=== PATIENT | male | born 1960 | race American Indian/Alaskan Native ===

== ENCOUNTER 2018-11-29 20:13 | Emergency (ER) | payer OTHER ==
[2018-11-29 20:22] VITALS: BMI 29.8
--- NOTE | 2018-11-29 20:45 | ED PDOC ---
HPI: Chest Pain Time Seen by Provider: 11/29/18 20:26 Chief Complaint (Nursing): Chest Pain Chief Complaint (Provider): CHEST PAIN History Per: Patient History/Exam Limitations: no limitations Onset/Duration Of Symptoms: Hrs Current Symptoms Are (Timing): Gone Now Severity: None Pain Scale Rating Of: 0 Quality: Sharp Exacerbating Factors: Movement, Deep Breathing, Exertion (NEGATIVE ) Alleviating Factors: Rest Additional History Per: Patient Additional Complaint(s): 57 Y/O MALE WITH MEDCIAL HISTORY OF PRE-DIABETES PRESENTS AND FORMER SMOKER, PRESENTS TO THE ED C/O TRANSIENT SHARP LEFT SIDED CHEST PAIN THAT STARTED WHILE AT WORK WHEN HE BENT DOWN. 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 AFTER THE INITIAL SHARP PAIN, PATIENT STATES PAIN REPRODUCED WITH DEEP INSPIRATION. HE STATES THE PAIN SUBSIDED ON IT OWN. PATIENT DENIES NAUSEA, VOMITING, SWEATS, FEVER, SHORTNESS OF BREATH. PATIENT DENIES PAIN AT THIS TIME AND IS ABLE TO TAKE A DEEP BREATH WITHOUT PAIN. - Risk Factors PE Risk Factors: Neg: Extremity Immobilization/Fx, Decreased Mobilty /Activity, Recent Major Surgery, Recent Hospitalization, Active Cancer, Previous DVT, Previous PE, CHF, Venous Stasis, Recent Major Trauma TAD Risk Factors: Pos: Hypertension Neg: Connective Tissue Disease, Marfan's Syndrome, Lisa-Danlos Syndrome, Aortic Valve Disease, Tumer's Syndrome Past Medical History Reviewed: Historical Data, Nursing Documentation, Vital Signs Vital Signs: Last Vital Signs Temp 98 F 11/29/18 20:25 Pulse 81 11/29/18 20:25 Resp 18 11/29/18 20:25 BP 148/93 H 11/29/18 20:25 Pulse Ox 99 11/29/18 20:25 - Medical History PMH: No Chronic Diseases - Surgical History Surgical History: No Surg Hx - Family History Family History: States: Unknown Family Hx - Social History Alcohol: None Drugs: Denies - Allergies Allergies/Adverse Reactions: Allergies Allergy/AdvReac Type Severity Reaction Status Date / Time No Known Allergies Allergy Verified 11/29/18 20:25 JAIME Risk Score for UA/NSTEMI - JAIME Risk Score Age > 64: NO 3 or more CAD Risk Factors: NO Known CAD (Stenosis greater than 50%): NO Aspirin use in past 7 days: NO Severe Angina: NO EKG ST changes greater than 0.5mm: NO Positive Cardiac Marker: NO JAIME Score: 0 Risk %: 5% Curb-65 Severity Score - CURB-65 Severity Score Confusion: No Bun >19mg/dl (>7mmol/L): No Respiratory Rate greater than/equal to 30: No Systolic BP <90 or Diastolic BP less than/equal 60mmHg: No Age >64: No Curb-65 Score: 0 Percentage 30-day mortality: 0.6% Wells Criteria for PE - Wells Criteria for Pulmonary Embolism Clinical Signs and Symptoms of DVT: No P.E is #1 Diagnosis, or Equally Likely: No Heart Rate >100: No Immobilization at least 3 days;Surgery previous 4 weeks: No Previous, objectively diagnosed PE or DVT: No Hemoptysis: No Malignancy w/treatment within 6 months, or palliative: No Total Score: 0 Review of Systems ROS Statement: Except As Marked, All Systems Reviewed And Found Negative Constitutional: Negative for: Fever, Chills, Sweats, Weakness, Malaise Cardiovascular: Positive for: Chest Pain, Light Headedness. Negative for: Palpitations, Orthopnea, Paroxysmal Noc. Dyspnea, Edema Respiratory: Negative for: Cough, Shortness of Breath, SOB with Exertion Gastrointestinal: Negative for: Nausea, Vomiting, Abdominal Pain, Diarrhea, Constipation Neurological: Negative for: Weakness Physical Exam - Reviewed Nursing Documentation Reviewed: Yes Vital Signs Reviewed: Yes - Physical Exam Appears: Positive for: Well, Non-toxic, No Acute Distress Head Exam: Positive for: ATRAUMATIC, NORMAL INSPECTION, NORMOCEPHALIC Skin: Positive for: Normal Color, Warm, DRY Eye Exam: Positive for: Normal appearance, PERRL ENT: Positive for: Normal ENT Inspection Neck: Positive for: Normal, Painless ROM, Supple Cardiovascular/Chest: Positive for: Regular Rate, Rhythm. Negative for: Chest Non Tender (PATIENT STATES LEFT SIDED CHEST PAIN FEELS SWORE UPON PALPATION ) Respiratory: Positive for: CNT, Normal Breath Sounds Gastrointestinal/Abdominal: Positive for: Normal Exam, Soft Back: Positive for: Normal Inspection Extremity: Positive for: Normal ROM Neurological/Psych: Positive for: Awake, Alert, Normal Tone, Oriented - Laboratory Results Result Diagrams: 11/29/18 20:44 11/29/18 20:44 - ECG ECG Rhythm: Positive for: Normal QRS Interpretation Of Abn EKG: VIEWED AND INTERPRETATED BY . NO PREVIOUS EKG TO COMPARE TO Rate: 62 O2 Sat by Pulse Oximetry: 99 Pulse Ox Interpretation: Normal - Radiology X-Ray: Viewed By Me X-Ray Interpretation: No Acute Disease Medical Decision Making Medical Decision Making: - CBC -CMP --TROPONIN --CXR --HEALTH ANALYST 22:44: LABS AND CHEST XRAY REVIEWED BY ME. PATIENT STABLE FOR D/C HOME. PATIENT CONTINUES PAIN FREE. PATIENT IS GOING TO SEE DR. EPSTEIN NEXT WEEK. PATIENT ENCOURAGED TO RETURN TO ED IF ANY WORSENING OR PERSISTENT SYMPTOMS OF CHEST PAIN AND SOB. PATIENT STATES UNDERSTANDING AND AGREES WITH PLAN. Disposition - Clinical Impression Clinical Impression: Atypical chest pain - Patient ED Disposition Is Patient to be Admitted: No Counseled Patient/Family Regarding: Diagnosis - Disposition Disposition: Routine/Home Disposition Time: 22:40 Condition: GOOD Instructions: Chest Pain That Is Not Caused by the Heart (DC) Print Language: BULGARIAN - POA Present On Arrival: None
[2018-11-29 20:50] LABS: BASO # 0.1 K/uL (0.0-0.2); BASO % 0.8 % (0.0-2.0); EOS # 0.2 K/uL (0.0-0.7); EOS % 3.4 % (0.0-4.0); HEMOGLOBIN 14.8 g/dL (12.0-18.0); LYMPH # 2.5 K/uL (1.0-4.3); LYMPH % 38.3 % (20.0-40.0); MEAN CELL VOLUME 89.1 fl (80.0-94.0); MEAN CORPUSCULAR HEMOGLOBIN 29.9 pg (27.0-31.0); MEAN CORPUSCULAR HGB CONC 33.6 g/dL (33.0-37.0); MEAN PLATELET VOLUME 9.6 fl (7.2-11.7); MONO # 0.5 K/uL (0.0-0.8); NEUT # 3.3 K/uL (1.8-7.0); NEUT % 50.5 % (50.0-75.0); NRBC % 0.1 % (0.0-0.0); RBC 4.95 Mil/uL (4.40-5.90); RED CELL DISTRIBUTION WIDTH 13.6 % (11.5-14.5); WHITE BLOOD COUNT 6.5 K/uL (4.8-10.8)
[2018-11-29 21:01] LABS: ALB/GLOB RATIO 1.4 (1.0-2.1); ALBUMIN 4.4 g/dL (3.5-5.0); ALT/SGPT 35 U/L (21-72); AST/SGOT 32 U/L (17-59); BLOOD UREA NITROGEN 16 mg/dl (9-20); CALCIUM 10.6 mg/dL (8.4-10.2); GFR NON-AFRICAN AMERICAN > 60
[2018-11-29 23:05] VITALS: BP 157/81; PULSE 76; RESP 17; TEMP 98.3; O2SAT 100
--- NOTE | 2018-11-30 14:14 | RAD ---
Date of service: 11/29/2018 HISTORY: Chest pain COMPARISON: No prior TECHNIQUE: Chest PA and lateral views FINDINGS: LUNGS: Slight elevation left hemidiaphragm possibly due to eventration. Minor left basilar atelectasis also felt to be present. PLEURA: No significant pleural effusion identified. No pneumothorax apparent. CARDIOVASCULAR: No aortic atherosclerotic calcification present. Aorta slightly ectatic and uncoiled. Cardiomegaly. The no pulmonary vascular congestion. OSSEOUS STRUCTURES: No significant abnormalities. VISUALIZED UPPER ABDOMEN: Normal. OTHER FINDINGS: None. IMPRESSION: Slight elevation left hemidiaphragm possibly due to eventration. Minor left basilar atelectasis also felt to be present.
--- NOTE | 2018-11-30 15:29 | CARD ---
APPROVED REPORT Date of service: 11/29/2018 EKG Measurement Heart [id number] <Conclusion> Normal sinus rhythm Minimal voltage criteria for LVH, may be normal variant T wave abnormality, consider inferior ischemia Abnormal ECG
== END 2018-11-29 23:03 | disposition home or self-care (01) ==
LOC: H.ER 20:13
DX: R07.89 Other chest pain (principal); I10 Essential (primary) hypertension; R73.03 Prediabetes; Z87.891 Personal history of nicotine dependence